=== PATIENT | female | born 1995 | race African-American/Black ===

== ENCOUNTER 2022-02-12 08:12 | Emergency (ER) | payer OTHER, SELFPAY ==
--- NOTE | ~2022-02-12 | US_ITS ---
US right upper quadrant DATE: 02/12/2022 09:14 INDICATION: Right upper quadrant abdominal pain, nausea TECHNIQUE: Real-time and color flow imaging and Doppler analysis COMPARISON: None FINDINGS: No gallstones or gallbladder wall thickening or abnormal pericholecystic fluid collection i s evident. Negative sonographic Ordonez's sign. The common bile duct measures 2 mm, normal. No hepatic space-occupying mass lesion. Normal hepatopedal portal venous flow direction. The pancreas appears unremarkable. IMPRESSION: No significant abnormality Reviewed, dictated and finalized at [facility]. Reviewed, dictated and finalized at [facility]. IMPRESSION: No significant abnormality
[2022-02-12 08:09] VITALS: BP 130/81; PULSE 70; RESP 20; TEMP 36.8; O2SAT 98
--- NOTE | 2022-02-12 08:36 | ED.ABDPAIN ---
HPI - Abdominal Pain General Chief Complaint: Abdominal Pain Stated Complaint: abd pain Time Seen by Provider: 02/12/22 08:13 Source: patient, family, EMS and RN notes reviewed Mode of arrival: EMS Limitations: no limitations History of Present Illness HPI narrative: 26-year-old female presenting to the emergency department for evaluation of cute onset of right upper quadrant pain with associated nausea and vomiting. Patient states when she woke up this morning she was having some abdominal pain and then it began to worsen. Patient did try to eat some bread and milk states that she did have emesis after this. Patient denies any previous abdomen surgeries. Related Data Allergies Allergy/AdvReac Type Severity Reaction Status Date / Time No Known Allergies Allergy Verified 02/12/22 08:23 Review of Systems Review of Systems: CONSTITUTIONAL: Denies fever, chills, or sweats. EYES: Denies visual changes, redness, or discharge. ENT: Denies rhinorrhea, congestion, sore throat, or otalgia. CARDIOVASCULAR: Denies chest pain, palpitations, or edema. RESPIRATORY: Denies cough or dyspnea. GASTROINTESTINAL: See HPI GENITOURINARY: Denies dysuria or hematuria. SKIN: Denies rash or itching. MUSCULOSKELETAL: Denies back pain, joint pain, or myalgia. NEUROLOGIC: Denies headache, numbness, or weakness. Exam Narrative: APPEARANCE: Ill-appearing, distressed due to abdominal pain. HEAD: normocephalic, atraumatic. EYES: PERRLA/EOMI, conjunctivae clear. NOSE: Normal no drainage THROAT: Pharynx clear, no exudate. NECK: Supple. No adenopathy, no masses. RESPIRATORY: Airway patent, respirations nonlabored. Clear to auscultation bilaterally, no rales, rhonchi, wheezing. CARDIOVASCULAR: Regular rate and rhythm without murmurs rubs or gallops. ABDOMINAL: Normal bowel sounds, right upper quadrant tenderness to palpation. MUSCULOSKELETAL: Moves all extremities. Strength/ROM intact, No edema, No calf tenderness. NEURO: Alert. Cranial nerves II through XII intact. Grossly intact SKIN: Warm, dry. Normal Color Course Course Emergency Course: Patient did feel improved with treatment. Lactic was elevated 2.4 and patient was treated with 1 L of normal saline. No elevated leukocytosis. AST, ALT alk phos and bilirubin are within normal levels. Patient does still have some minimal tenderness to palpation at the epigastrium. Patient is requesting discharge to home. Patient declined any other work-up including a CT scan. Patient and family were updated on the suspected diagnosis of biliary colic and on the treatment for home. They were also educated on reasons to return to the emergency department. Vital Signs Vital signs: Vital Signs Temperature 98.2 F 02/12/22 08:09 Pulse Rate 70 02/12/22 08:09 Respiratory Rate 20 02/12/22 08:09 Blood Pressure 130/81 02/12/22 08:09 Pulse Oximetry 98 02/12/22 08:09 Temperature 98.2 F 02/12/22 08:09 Pulse Rate 85 02/12/22 10:14 Respiratory Rate 16 02/12/22 10:14 Blood Pressure 130/81 02/12/22 10:14 Pulse Oximetry 100 02/12/22 10:14 MDM - Abdominal Pain Differential Diagnosis Differential diagnosis: Likely abdominal pain Lab Data Attestation: I reviewed the patient's lab results. Result diagrams: 02/12/22 08:50 02/12/22 08:50 Labs: Lab Results 02/12/22 02/12/22 02/12/22 Range/Units 08:50 08:50 08:50 WBC 8.6 (4.5-10.0) K/mm3 RBC 4.65 (4.2-5.4) M/mm3 Hgb 11.8 L (12.0-15.0) g/dL Hct 37.5 (37.0-47.0) % MCV 80.6 (80-100) fl MCH 25.4 L (26-34) pg MCHC 31.5 L (32-36) g/dl RDW 14.1 (11.5-14.5) % Plt Count 282 (150-375) k/mm3 MPV 10.7 H (7.4-10.4) fl Immature Gran % (Auto) 0.3 (0-0.5) % Neut % (Auto) 47.5 (45.5-73.1) % Lymph % (Auto) 41.9 (18.3-44.2) % [place] % (Auto) 8.6 H (2.6-8.5) % Eos % (Auto) 1.5 (0-4.4) % Baso % (Auto) 0.2 (0.2-1.2) % Lymph # (Auto) 3.61 H (0
[2022-02-12] MEDS: HYDROmorphone HCL INJ (*CRX) 1 MG/ML SYR IV PUSH (08:43)
[2022-02-12] MEDS: ONDANSETRON INJ 4 MG/2 ML VIAL IV PUSH (08:43)
[2022-02-12] MEDS: SODIUM CHLORIDE 0.9% IV 1,000 ML 999 ML IV CONT (08:44)
[2022-02-12 09:05] LABS: Basophils Percent Auto 0.2 % (0.2-1.2); Eosinophils Absolute Auto 0.1 K/mm3 (0-0.3); Eosinophils Percent Auto 1.5 % (0-4.4); Hematocrit 37.5 % (37.0-47.0); Hemoglobin 11.8 g/dL (12.0-15.0); Immature Granulocyte Absolute 0.03 K/mm3 (0.00-0.031); Immature Granulocyte Percent A 0.3 % (0-0.5); Lymphocytes Absolute Auto 3.61 K/mm3 (0.9-3.2); Lymphocytes Percent Auto 41.9 % (18.3-44.2); Mean Corpuscular HGB Conc 31.5 g/dl (32-36); Mean Corpuscular Hemoglobin 25.4 pg (26-34); Mean Corpuscular Volume 80.6 fl (80-100); Mean Platelet Volume 10.7 fl (7.4-10.4); Monocytes Absolute Auto 0.7 K/mm3 (0.1-0.6); Monocytes Percent Auto 8.6 % (2.6-8.5); Neutrophils Absolute Auto 4.1 K/mm3 (1.3-6.7); Neutrophils Percent Auto 47.5 % (45.5-73.1); Platelet Count Result 282 k/mm3 (150-375); Red Blood Count 4.65 M/mm3 (4.2-5.4); Red Cell Distribution Width 14.1 % (11.5-14.5); White Blood Count 8.6 K/mm3 (4.5-10.0)
[2022-02-12 09:15] LABS: Lactic Acid Reflex 2.4 mmol/L (0.7-2.0)
[2022-02-12 09:18] LABS: Alanine Aminotransferase 22 U/L (4-35); Albumin Level 4.3 g/dL (3.5-5.1); Alkaline Phosphatase 62 U/L (38-126); Anion Gap 8 mmol/L (8-16); Aspartate Amino Transferase 27 U/L (14-36); Bilirubin,Total 0.3 mg/dL (0.2-1.3); Blood Urea Nitrogen 8 mg/dL (7-17); Calcium 8.6 mg/dL (8.4-10.2); Carbon Dioxide 25 mmol/L (22-30); Chloride 105 mmol/L (98-107); Estimated CRCL calculation 121 ml/min; Estimated Glomerular Filt Rate > 60; Glucose 134 mg/dL (65-110); Lipase 60 U/L (23-300); Potassium 3.3 mmol/L (3.4-5.0); Sodium 138 mmol/L (137-145)
[2022-02-12 09:49] VITALS: BP 114/76; PULSE 64; RESP 18; O2SAT 99
[2022-02-12 10:14] VITALS: BP 130/81; PULSE 85; RESP 16; O2SAT 100
[2022-02-12 12:02] LABS: Reflex Lactic Acid Yes or No Add Lactic
== END 2022-02-12 10:10 | disposition home or self-care (01) ==
PROVIDERS: Emergency Provider Emergency Medicine
DX: R10.11 Right upper quadrant pain (principal)
CPT/HCPCS: 36415; 76705; 80053; 83605; 83690; 85025; 96361; 96374; 96375; 99284; J1170; J2405; J7030